=== PATIENT | female | born 1955 | race Caucasian/White ===

== ENCOUNTER → 2017-06-11 | Outpatient (CLI) | payer BC ==
[~2017-06-11] MED LIST: ADVAIR 100/28 DISKU1 IH; ALDACTONE50 MG PO; ALEVE 220MG220 MG PO; AMBIEN 10MG10 M1 PO; AMBIEN 10MG10 MG PO; ASPIR-LOW81 MG PO; ASPIRIN E.C. 8181 MG PO; AZO-CRANBERRY450 MG PO; BACTRIM DS 8001 TAB PO; CEPHALEXIN500 M1 PO; CIPRO 500M500 MG/5 M PO; CRANBERRY AZO; CRESTOR10 MG PO; DITROPAN 5MG TAB5 MG PO; EC NAPROSYN500 MG PO; FIORINAL W/CODE1 CA2; GLUCAGON1 MG IJ; HUMALOG100 U/ML SC; HUMULIN R 10100 U/ML; LASIX 40MG TABL40 MG PO; LEVSIN 0.10.125 MG/T PO; LISINOPRIL5 MG PO; LORTAB 5/500 501 TAB PO; LYRICA75 MG PO; MIRALAX PA17 GM/Dose PO; MULTIPLE VITAMI1 CAP PO; MVI PO; NORCO 325 MG-7.1 TAB PO; NOVOLIN R100 U/ML IJ; NOVOLOG 100U100 U/M1 SQ; NOVOLOG 100U100 U/ML SQ; PERCOCET 325 MG1 TA2 PO; PHENERGAN 25 TA25 MG PO; PREDNISONE 5MG5 MG PO; PRINIVIL5 MG PO; PROZAC 20MG20 MG PO; RT ADVAIR 128 DISKUS IH; RT ADVAIR 228 DISKUS IH; SANCTURA XR60 MG PO; SAVELLA50 MG PO; SIMPONI50 MG/0.5 SC; SINGULAIR 110 MG/TAB PO; SYNTHROID 0.10.15 MG PO; SYNTHROID0.137 MG PO; TAGAMET400 MG PO; TOVIAZ8 MG PO; TRAMADOL/APAP 31 TAB PO; ULTRAM 50MG TAB50 MG PO; VESICARE PO; ZOCOR 80MG80 MG PO; ZOCOR80 MG PO; ZOFRAN 4MG T4 MG/TAB PO; ZYRTEC 10MG; ZYRTEC 10MG10 MG PO; ZYRTEC PO
== END ==
LOC: MC.RAD 06:59
DX: Z12.31 Encounter for screening mammogram for malignant neoplasm of breast (principal)

== ENCOUNTER → 2018-03-24 | Outpatient (CLI) | payer BC | LOC: COL.RAD 12:58 | DX: M50.223 Other cervical disc displacement at C6-C7 level (principal); M48.02 Spinal stenosis, cervical region; Z98.890 Other specified postprocedural states ==

== ENCOUNTER → 2018-05-21 | Outpatient (CLI) | payer BC ==
[2018-05-21 13:04] LABS: BASO % 0.3 % (0.0-2.0); GRAN # 10.5 (1.4-6.5); GRAN % 87.5 % (42.2-75.2); HEMOGLOBIN 11.6 g/dl (12.5-16.0); LYMPH # 0.6 (1.2-3.4); LYMPH % 5.3 % (20.0-51.0); MEAN CELL VOLUME 88 fl (80.0-100.0); MEAN CORPUSCULAR HEMOGLOBIN 30 pg (27.0-31.0); MEAN CORPUSCULAR HGB CONC 34 g/dl (33.0-37.0); MEAN PLATELET VOLUME 10.2 fl (7.4-10.4); MONO # 0.8 (0.1-0.6); MONO % 6.3 % (1.7-9.3); PLATELET COUNT 237 K/mm3 (130-400); RED BLOOD COUNT 3.92 M/mm3 (4.10-5.30)
[2018-05-21 13:12] LABS: ALBUMIN 4.2 gm/dL (3.5-5.0); BILIRUBIN,TOTAL 0.7 mg/dL (0.0-1.0); CALCIUM 9.1 mg/dL (8.4-10.2); CREATININE, serum 0.8 mg/dL (0.52-1.25); POTASSIUM 4.5 mmol/L (3.4-5.0); TOTAL PROTEIN 7.5 gm/dL (6.4-8.2)
[2018-05-21 13:26] LABS: HEMATOCRIT 34.4 % (37.0-47.0)
[2018-05-21 14:19] LABS: COLLECTION METHOD CLEAN CATCH
[2018-05-21 14:27] LABS: MUCOUS Present /lpf; PH 6 (5-8); URINE APPEARANCE Hazy; URINE BACTERIA Moderate /hpf; URINE BILIRUBIN Negative (NEGATIVE); URINE BLOOD 2+ (NEGATIVE); URINE COLOR Yellow; URINE GLUCOSE 3+ (NEGATIVE); URINE KETONE Trace (NEGATIVE); URINE LEUKOCYTE ESTERASE 2+ (NEGATIVE); URINE NITRATE Negative (NEGATIVE); URINE PROTEIN(semi-quant) 1+ (NEGATIVE); URINE UROBILINOGEN Negative (NEGATIVE)
== END ==
LOC: COL.LAB 11:59
PROVIDERS: Physician Assistant
DX: N39.0 Urinary tract infection, site not specified (principal); R59.0 Localized enlarged lymph nodes

== ENCOUNTER → 2018-05-27 | Outpatient (CLI) | payer BC | LOC: COL.RAD 05-23 09:00 | DX: M79.644 Pain in right finger(s) (principal); M25.531 Pain in right wrist | CPT/HCPCS: J3301; Q9967 ==

== ENCOUNTER → 2019-01-30 | Outpatient (CLI) | payer BC ==
[~2019-01-30] MED LIST changes: +GLUCAGON EMERGEN1 M1 SQ; +MELATONIN5 M1 PO; +MOBIC15 MG PO; +MYRBETR50MG PO; +NORCO 325 MG-51 TAB PO; +ROBAXIN 75750 MG/TAB PO; +XELJANZ5 MG PO
== END ==
LOC: COL.RAD 09:25
DX: R93.5 Abnormal findings on diagnostic imaging of other abdominal regions, including retroperitoneum (principal); R39.198 Other difficulties with micturition

== ENCOUNTER 2019-02-16 10:16 | Outpatient (CLI) | payer BC ==
[2019-02-16] VITALS (7 sets, daily range): BP systolic 101–157; BP diastolic 42–89; PULSE 81–93
[~2019-02-16] VITALS: Ht 154.9 cm; Wt 119.3 kg
--- NOTE | 2019-02-16 13:00 | NUR ---
Per pt report her bs at 48.Pt has a sensor for accucheck and insulin pump.Per pt her insulin pump is shut off.orange juice,applesauce given.BS back up to 90.Patient ordered lunch and reports bs over 100 afterwards.Per pt her sensor takes accucheck every 5 minutes.
--- NOTE | 2019-02-16 13:42 | NUR ---
Discharge instructions given to pt.pt verbalizes understanding.Pt escorted out by this nurse.pt son here to pick her up.
== END 2019-02-16 13:42 | disposition home or self-care (01) ==
LOC: COL.RAD 10:16
DX: M48.02 Spinal stenosis, cervical region (principal); M54.12 Radiculopathy, cervical region; Z98.1 Arthrodesis status
CPT/HCPCS: Q9967

== ENCOUNTER → 2019-05-01 | Outpatient (CLI) | payer BC | LOC: MC.RAD 11:43 | DX: Z12.31 Encounter for screening mammogram for malignant neoplasm of breast (principal) ==

== ENCOUNTER → 2019-07-03 | Outpatient (CLI) | payer BC | LOC: COL.RAD 13:37 | DX: M25.512 Pain in left shoulder (principal) ==

== ENCOUNTER 2019-08-01 08:28 | Day surgery (SDC) | payer BC ==
[~2019-08-01] VITALS: Ht 154.9 cm; Wt 121.6 kg
[2019-08-01 08:47] VITALS: BP 163/77; PULSE 94; TEMP 98
[2019-08-01] MEDS ORDERED: LIPITOR 80MG80 MG PO (09:16)
[2019-08-01] MEDS ORDERED: ORENCIA CL125 MG/1 M SQ (09:17)
[2019-08-01] MEDS ORDERED: VIIBRYD20 MG PO (09:18)
[2019-08-01] MEDS ORDERED: LASIX 80MG TABL80 MG PO (09:18)
[2019-08-01 10:35] VITALS: BP 156/63; PULSE 96; TEMP 97.9
--- NOTE | 2019-08-01 10:35 | NUR ---
The patient arrived back to [facility] from the operating room at this time. The patient appears drowsy but arouses easily to her name. The patient's post operative vital signs were started at this time. The patient has two incision which are covered with singleton set and without redness or edema. Call light is within reaach. Will continue to monitor the patient.
[2019-08-01 10:50] VITALS: BP 138/68; PULSE 85
--- NOTE | 2019-08-01 10:50 | NUR ---
The patient appears more alert and agrees to try some diet soda and saltine crackers at this time. The patient's vital signs appear stable. The patient denies any pain or nausea/vomiting at this time. Call light is within reach. Will continue to monitor the patient.
[2019-08-01 11:04] VITALS: BP 140/60; PULSE 82
--- NOTE | 2019-08-01 11:04 | NUR ---
The patient appears to be tolerating the food and drink well. Vital signs appear stable. brought back to be at her bedside. Will continue to monitor the patient.
--- NOTE | 2019-08-01 11:10 | NUR ---
Discharge instructions were reviewed with the patient and her at this time. They both verbalized understanding and have no questions for the nurse at this time. The patient's IV to her left forearm was removed and a pressure dressing was applied to the site. The nurse instructed the patient to get dressed and press the call light if she needs assistance.
--- NOTE | 2019-08-01 11:20 | NUR ---
The patient was escorted out via wheelchair to a private vehicle by DANNA Clement. The patient's belongings and discharge paperwork were sent with her. The patient's is present to drive her home.
== END 2019-08-01 11:20 | disposition home or self-care (01) ==
LOC: SDCO 08:28
DX: T85.193A Other mechanical complication of implanted electronic neurostimulator, generator, initial encounter (principal); T85.191A Other mechanical complication of implanted electronic neurostimulator of peripheral nerve electrode (lead), initial encounter; J45.909 Unspecified asthma, uncomplicated; Z79.899 Other long term (current) drug therapy; Z88.1 Allergy status to other antibiotic agents; Z88.8 Allergy status to other drugs, medicaments and biological substances; E11.9 Type 2 diabetes mellitus without complications; Z96.41 Presence of insulin pump (external) (internal); E03.9 Hypothyroidism, unspecified
CPT/HCPCS: J0690; J2704; J3010; J7030

== ENCOUNTER 2019-11-01 11:03 | Emergency (ER) | payer BC ==
[~2019-11-01] VITALS: Ht 154.9 cm; Wt 122.7 kg
[~2019-11-01 11:03] MED LIST changes: +LASIX 80MG TABL80 MG PO; +LIPITOR 80MG80 MG PO; +ORENCIA CL125 MG/1 M SQ; +VIIBRYD20 MG PO
[2019-11-01 11:13] VITALS: TEMP 97.1
[2019-11-01 11:53] LABS: BASO % 0.3 % (0.0-2.0); EOS % 0.2 % (0-4.0); GRAN # 8.3 (1.4-6.5); GRAN % 77.2 % (42.2-75.2); HEMATOCRIT 40.4 % (37.0-47.0); HEMOGLOBIN 13.4 g/dl (12.5-16.0); LYMPH # 1.7 (1.2-3.4); LYMPH % 15.7 % (20.0-51.0); MEAN CELL VOLUME 88 fl (80.0-100.0); MEAN CORPUSCULAR HEMOGLOBIN 29 pg (27.0-31.0); MEAN CORPUSCULAR HGB CONC 33 g/dl (33.0-37.0); MEAN PLATELET VOLUME 10.7 fl (7.4-10.4); MONO # 0.6 (0.1-0.6); PLATELET COUNT 306 K/mm3 (130-400); REDCELL DISTRIBUTION WIDTH-CV 14.2 % (11.5-14.5)
[2019-11-01 12:02] LABS: ACETONE,SERUM NEGATIVE; ALBUMIN 4.9 gm/dL (3.5-5.0); ALKALINE PHOSPHATASE 154 U/L (50-136); ANION GAP 15 mmol/L (7-16); AST,SGOT 39 U/L (15-37); BILIRUBIN,TOTAL 0.8 mg/dL (0.0-1.0); BLOOD UREA NITROGEN 37 mg/dL (7-17); C-REACTIVE PROTEIN 2.7 mg/dL (0.0-0.9); CALCIUM 10.1 mg/dL (8.4-10.2); CARBON DIOXIDE 26 mmol/L (22-30); CREATININE, serum 1.04 (0.52-1.25); POTASSIUM 3.9 mmol/L (3.4-5.0); SODIUM 131 mmol/L (137-145); TOTAL PROTEIN 8.3 gm/dL (6.4-8.2)
[2019-11-01 12:03] LABS: CHLORIDE 89 mmol/L (98-107)
[2019-11-01 12:06] LABS: ALANINE AMINOTRANSFERASE 41 U/L (4-34); GLUCOSE 595 mg/dL (74-106)
[2019-11-01 12:09] LABS: COLLECTION METHOD CLEAN CATCH
[2019-11-01 12:25] LABS: PH 5 (5-8); SQUAMOUS EPITHELIAL 0-2 /hpf; URINE APPEARANCE Clear; URINE BACTERIA None Seen /hpf; URINE BILIRUBIN Negative (NEGATIVE); URINE BLOOD Negative (NEGATIVE); URINE COLOR Straw; URINE GLUCOSE 3+ (NEGATIVE); URINE KETONE 1+ (NEGATIVE); URINE LEUKOCYTE ESTERASE Negative (NEGATIVE); URINE NITRATE Negative (NEGATIVE); URINE PROTEIN(semi-quant) Negative (NEGATIVE); URINE UROBILINOGEN Negative (NEGATIVE)
[2019-11-01 14:54] LABS: CALCIUM 9.4 mg/dL (8.4-10.2); CREATININE, serum 0.85 (0.52-1.25); POTASSIUM 3.7 mmol/L (3.4-5.0)
[2019-11-01 15:32] VITALS: BP 118/76; PULSE 72
== END 2019-11-01 15:32 | disposition home or self-care (01) ==
LOC: COL.ER 11:03
PROVIDERS: Physician Assistant
DX: E10.65 Type 1 diabetes mellitus with hyperglycemia (principal); Z79.82 Long term (current) use of aspirin; Z79.51 Long term (current) use of inhaled steroids
CPT/HCPCS: J1815; J7030

== ENCOUNTER → 2019-12-15 | Outpatient (CLI) | payer BC | LOC: COL.RAD 09:40 | DX: N39.41 Urge incontinence (principal) ==

== ENCOUNTER 2020-12-03 10:45 | Emergency (ER) | payer BC ==
[~2020-12-03] VITALS: Ht 154.9 cm; Wt 120.9 kg
[2020-12-03 10:52] VITALS: TEMP 98.7
[2020-12-03 11:07] LABS: BASO # 0.1 (0.0-0.2); BASO % 0.5 % (0.0-2.0); GRAN # 10.3 (1.4-6.5); GRAN % 85.4 % (42.2-75.2); HEMATOCRIT 40.8 % (37.0-47.0); HEMOGLOBIN 13.6 g/dl (12.5-16.0); LYMPH % 8.2 % (20.0-51.0); MEAN CELL VOLUME 91 fl (80.0-100.0); MEAN CORPUSCULAR HEMOGLOBIN 30 pg (27.0-31.0); MEAN CORPUSCULAR HGB CONC 33 g/dl (33.0-37.0); MEAN PLATELET VOLUME 10.3 fl (7.4-10.4); MONO # 0.6 (0.1-0.6); MONO % 5.3 % (1.7-9.3); PLATELET COUNT 333 K/mm3 (130-400); RED BLOOD COUNT 4.48 M/mm3 (4.10-5.30); REDCELL DISTRIBUTION WIDTH-CV 13.9 % (11.5-14.5)
[2020-12-03 11:23] LABS: ALBUMIN 4.8 gm/dL (3.5-5.0); ALKALINE PHOSPHATASE 135 U/L (50-136); ANION GAP 19 mmol/L (7-16); AST,SGOT 38 U/L (15-37); BILIRUBIN,TOTAL 0.4 mg/dL (0.0-1.0); BLOOD UREA NITROGEN 30 mg/dL (7-17); CALCIUM 9.8 mg/dL (8.4-10.2); CARBON DIOXIDE 21 mmol/L (22-30); CHLORIDE 93 mmol/L (98-107); CREATININE, serum 1.02 (0.52-1.25); POTASSIUM 4.2 mmol/L (3.4-5.0); SODIUM 132 mmol/L (137-145); TOTAL PROTEIN 7.8 gm/dL (6.4-8.2)
[2020-12-03 11:27] LABS: GLUCOSE 570 mg/dL (74-106)
[2020-12-03 11:29] LABS: ALANINE AMINOTRANSFERASE 45 U/L (4-34)
[2020-12-03 11:42] LABS: ACETONE,SERUM SMALL
[2020-12-03 12:22] LABS: COLLECTION METHOD CLEAN CATCH
[2020-12-03 12:27] LABS: PH 5 (5-8); SQUAMOUS EPITHELIAL 0-2 /hpf; URINE APPEARANCE Clear; URINE BACTERIA None Seen /hpf; URINE BILIRUBIN Negative (NEGATIVE); URINE BLOOD Negative (NEGATIVE); URINE COLOR Straw; URINE GLUCOSE 3+ (NEGATIVE); URINE KETONE 1+ (NEGATIVE); URINE LEUKOCYTE ESTERASE Negative (NEGATIVE); URINE NITRATE Negative (NEGATIVE); URINE PROTEIN(semi-quant) Negative (NEGATIVE); URINE RBC 0-2 /hpf; URINE UROBILINOGEN Negative (NEGATIVE)
[2020-12-03 17:31] LABS: ANION GAP 5 mmol/L (7-16); BLOOD UREA NITROGEN 26 mg/dL (7-17); CALCIUM 9.2 mg/dL (8.4-10.2); CARBON DIOXIDE 32 mmol/L (22-30); CHLORIDE 94 mmol/L (98-107); GLUCOSE 222 mg/dL (74-106); POTASSIUM 4.3 mmol/L (3.4-5.0); SODIUM 130 mmol/L (137-145)
[2020-12-03 18:10] VITALS: BP 128/75; PULSE 84
[2020-12-03 19:03] LABS: ACETONE,SERUM NEGATIVE
== END 2020-12-03 17:45 | disposition home or self-care (01) ==
LOC: COL.ER 10:45
PROVIDERS: Nurse Practitioner Primary Care
DX: E11.65 Type 2 diabetes mellitus with hyperglycemia (principal); E66.9 Obesity, unspecified; Z96.41 Presence of insulin pump (external) (internal); Z68.43 Body mass index [BMI] 50.0-59.9, adult; Z88.8 Allergy status to other drugs, medicaments and biological substances
CPT/HCPCS: J1815; J7030

== ENCOUNTER → 2023-07-07 | Outpatient (CLI) | payer BC, MEDICARE ==
[~2023-07-07] MED LIST changes: +CIPRO 500MG TA500 MG PO; +DOXYCYCLINE 10100 MG PO; +MACROBID 1100 MG/CAP PO
[2023-07-07 16:33] LABS: CREATININE, serum 0.85 mg/dL (0.57-1.11)
== END ==
LOC: COL.LAB 15:56
PROVIDERS: Orthopaedic Surgery Sports Medicine
DX: Z01.812 Encounter for preprocedural laboratory examination (principal); M54.2 Cervicalgia